=== PATIENT | female | born 1980 | race Two or more races ===

== ENCOUNTER 2024-10-19 14:42 | Emergency (ER) | payer BC, SELFPAY ==
--- OUTSIDE RECORDS SUMMARY | 2024-10-07 10:40 | XMS_ITS | Encounter Summary ---
Author Organization [email or web address] Address [address] [address] Care Team Providers Care Health Services Director Name Role Phone Brodie Hair MD Primary Care Provider [phone] Reason for Referral * Procedure/Equipment (Routine) - New Request Specialty Diagnoses / Procedures Referred By Cher rizo Referred To Contact Diagnoses Encounter for screening for malignant neoplasm of colon Procedures Colonoscopy Screening Brodie Hair MD [address] [place] [address] Phone: tel: fax: Referral ID Status Reason Start Date Expiration Date V isits Requested Visits Authorized [id number] New Request 10/07/2024 10/07/2026 1 1 Reason for Visit * Reason Comments Follow-up, NOS Encounter Details Date Type Department Care Team (Latest Contact Info) Description 10/07/2024 10:40 AM CDT Office Visit [address] [phone] Brodie Hair MD [address] [place] [address] [phone] Adenomatous polyp of colon, unspecified part of colon (Primary Dx); Encounter for screening for malignant neoplasm of colon; Family history of colon cancer; Screening for malignant neoplasm of cervix; Special screening examination for human papillomavirus (HPV); Menstrual cycle problem Social History Tobacco Use Types Packs/Day Years Used Date Smoking Tobacco: Never Smokeless Tobacco: Never Comments:smoked in early ruth ns Alcohol Use Standard Drinks/Week Comments Not Currently 0 (1 standard drink = 0.6 oz pure alcohol) drank ~ 10 years ago - stopped Hunger Vital Sign Answer Date Recorded Within the past 12 months, y ou worried that your food would run out before you got the money to buy more. Never true 01/21/20 24 Within the past 12 months, t he food you bought just didn't last and you didn't have money to get more. Never true 01/21/2024 PRAPARE - Transportation Answer Date Re corded In the past 12 months, has l ack of transportation kept you from medical appointments or from getting medications? No 10/2023 In the past 12 months, has l ack of transportation kept you from meetings, work, or from getting things needed for daily living? No 01/21/2024 Housing Stability Vital Sign Answer Pasha e Recorded In the last 12 months, was t here a time when you were not able to pay the mortgage or rent on time? No 01/21/2024 In the past 12 months, how m any times have you moved where you were living? 0 01/21/2024 At any time in the past 12 m [facility], were you homeless or living in a retirement (including now)? No 01/21/2024 Financial Resource Strain Answer Date R ecorded Is it hard for you to pay fo r the very basics like food, housing, medical care or heating? No 04/28/2022 Food Insecurity Answer Date Recorded Does your food run out before you have the money to buy more? No 04/28/2022 Transportation Needs Answer Date Record ed Does a lack of transportatio n keep you from your medical appointments or from getting your medications? 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 woman comes in today for pap smear only. Her most recent annual exam was on 01/21/2024.Her most recent Pap smear was on 05/23/2021 and showed no abnormalities. Her menstrual cycles are regular but in the past 4 months she has noted that the flow has been little as compared to before. Previous abnormal Pap smears: no Contraception: none Also wanted to discuss colonoscopy. She has family history of colon cancer in her maternal are not and maternal grandfather. Has been getting the colonoscopy every 5 years. The last colonoscopy was in 2019. She has been having colon polyps that are being removed. No change in the bowel movements. Objective: BP 114/80 (BP Location: Right Arm, BP Cuff Size: Regular) Pulse 78 Temp 98.1 ??F (36.7 ??C) (Tympanic) Resp 20 Wt 259 lb 12.8 oz (117.8 kg) BMI 41.93 kg/m?? Pelvic Exam: cervix normal in appearance, external genitalia normal, no adnexal masses or tenderness, no cervical motion tenderness, vagina normal without discharge. Pap smear obtained. Assessment: 1. Adenomatous polyp of colon, unspecified part of colon 2. Encounter for screening for malignant neoplasm of colon 3. Family history of colon cancer 4. Screening for malignant neoplasm of cervix 5. Special screening examination for human papillomavirus (HPV) 6. Menstrual cycle problem Plan: Follow up in 5 years, or as indicated by Pap results. Colonoscopy ordered For decreased menstrual flow with regular cycles hemoglobin and ferritin ordered. The patient also has history of vitamin-D deficiency. Vitamin-D on a regular basis and exercise discussed. The patient is agreeable with the plan. Brodie Hair MD documented in this encounter Plan of Treatment Scheduled Orders Name Type Priority Associated Diagnoses Orde r Schedule Colonoscopy Screening GI Routine Encounter for screening for malignant neoplasm of colon 1 Occurrences starting 10/07/2024 until 10/07/2026 documented as of this encounter Procedures Procedure Name Priority Date/Time Associated Diagnosis Comments HPV WITH 16 18 GENOTYPING, CERVICAL/ENDOCERVI FEROZ Routine 10/07/2024 11:18 AM CDT Special screening examination for human papillomavirus (HPV) documented in this encounter Results * (ABNORMAL) Ferritin (10/07/2024 11:21 AM CDT) Ferritin 255(H) 9 - 204 ng/mL 10/07/2024 7:02 PM CDT [facility] Blood Venipuncture / Unknown 10/07/2024 11:21 AM CDT 10/07/2024 11:21 AM CDT Brodie Hair MD LAB_1 Final Result Performing Organization Address City/[facility]/ZIP Co de Phone Number [facility] CLIA: [id number] [address] [place] [id number] [place] [address] * Hemoglobin, Blood (10/07/2024 11:21 AM CDT) Hemoglobin 13.6 12.0 - 15.5 g/dL 10/07/2024 11:26 AM CDT [facility] Blood Venipuncture / Unknown 10/07/2024 11:21 AM CDT 10/07/2024 11:21 AM CDT Brodie Hair MD LAB_1 Final Result [facility] CLIA: [id number] [address] [place] [phone], [facility] * HPV Genotyping PCR (Cervical/Endocervical ONLY) with Reflex Cytology (Pap) if Indicated (1:18 AM CDT) HPV High Risk Type 16 PCR Not Detected Not detected 10/09/2024 1:[address] [facility] HPV High Risk Type 18 PCR Not Detected Not Detected 10/09/2024 1:[address] [facility] HPV High Risk Other Than 16/18 Not Detected Not detected 10/09/2024 1:[address] [facility] Cervical Broom ENTIRE ENDOCERVIX / Unknown 10/07/2024 11:18 AM CDT 10/07/2024 11:22 AM CDT [facility] - 10/09/2024 1:34 PM CDT The Xiomy HPV test is a qualitative in vitro test for the detection of Human Papillomavirus in [facility] patient specimens. The test utilizes amplification of target DNA by Polymerase Chain Reaction (PCR) and nucleic acid hybridization for the detection of 14 high-risk (HR) HPV types. The assay tests for high risk types (16, 18, 31, 33, 35, 39, 45, 51, 52, 56, 58, 59, 66, and 68). Brodie Hair MD LAB_[address] [facility] CLIA: [id number] [address] [place] [address], [facility] documented in this encounter Visit Diagnoses Diagnosis Adenomatous polyp of colon, unspecified part of colon- Primary Encounter for screening for malignant neoplasm of colon Special screening for malignant neoplasms, colon Family history of colon cancer Family history of malignant neoplasm of gastrointestinal tract Screening for malignant neoplasm of cervix Screening for malignant neoplasm of the cervix Special screening examination for human papillomavirus (HPV) Menstrual cycle problem Irregular menstrual cycle documented in this encounter Care Teams Health Services Director Relationship Specialty Start Date End Date Brodie Hair MD [address] [place] [address] PCP - General 01/26/04 documented as of this encounter
--- OUTSIDE RECORDS SUMMARY | 2024-10-07 11:20 | XMS_ITS | Encounter Summary ---
Author Organization [facility] Address [address] [address] Care Team Providers Care Telecommunication Tower Technician Name Role Phone Brodie Hair MD Primary Care Provider + [phone] Encounter Details Date Type Department Care Team (Late st Contact Info) Description 10/07/2024 11:20 AM CDT Lab Visit [facility] [address] [place] [id number] Menstrual cycle problem Social History Tobacco Use [...] any time in the past 12 m [facility], were you homeless or living in a [facility]p (including now)? No 01/21/2024 Financial Resource Strain [...] on file documented as of this encounter Plan of Treatment Not on file documented as of this encounter Procedures Procedure Name Priority Date/Time Associated Diagnosis Comments HEMOGLOBIN, BLOOD Routine 10/07/2024 11: 21 AM CDT Menstrual cycle problem FERRITIN Routine 10/07/2024 11:21 AM CDT Menstrual cycle problem documented in this encounter Results * (ABNORMAL) Ferritin (10/07/2024 11:21 AM CDT) Ferritin 255(H) 9 - 204 ng/mL 10/07/2024 7:02 PM CDT [facility] Blood Venipuncture / Unknown 10/07/2024 11:21 AM CDT 10/07/2024 11:21 AM CDT us Brodie Hair MD LAB_1 Final Result [facility] CLIA: [id number] [address] [place] [address] * Hemoglobin, Blood (10/07/2024 11:21 AM CDT) Hemoglobin 13.6 12.0 - 15.5 g/dL 10/07/2024 11:26 AM CDT [facility] Blood Venipuncture / Unknown 10/07/2024 11:21 AM CDT 10/07/2024 11:21 AM CDT Brodie Hair MD LAB_1 Final Result [facility] CLIA: [id number] [address] [place] [address] documented in this encounter Visit Diagnoses Diagnosis Menstrual cycle problem Irregular menstrual cycle documented in this encounter Care Teams Telecommunication Tower Technician Relationship Specialty Start Date End Date Brodie Hair MD [address] [place] [address] PCP - General 01/26/04 documented as of this encounter
--- OUTSIDE RECORDS SUMMARY | 2024-10-16 08:00 | XMS_ITS | Encounter Summary ---
Author Organization [facility] Address [address], [place] [address] Care Team Providers Care Global Account Director Name Role Phone Brodie Hair MD Primary Care Provider + [phone] Reason for Visit * Reason Comments EATING DISORDER * Consult/Transfer Care (Routine) - New Request Specialty Diagnoses / Procedures Referred By Cher rizo Referred To Contact Diagnoses Other specified eating disorder Aisha Ge MD [address] [place] [address] Phone: tel: fax: Referral ID Status Reason Start Date Expiration Date V isits Requested Visits Authorized [id number] New Request 05/06/2024 08/05/2025 1 1 Encounter Details Date Type Department Care Team (Late Contact Info) Description 10/16/2024 8:00 AM CDT Office Visit [facility] [address] [place], [place] [address] Rosa Bhardwaj MD [address] [place], [place] [phone] Nurse, [facility] Eating disorder, unspecified type (Primary Dx) Social History Tobacco Use Types Packs/Day Years Used Date Smoking Tobacco: Never Smokeless Tobacco: Never Comments:smoked in early ruth ns Alcohol Use Standard Drinks/Week Comments Not Currently 0 (1 standard drink = 0.6 oz pure alcohol) ank ~ 10 years ago - stopped Hunger [...] any time in the past 12 m [facility], were you homeless or living in a [facility] (including now)? No 01/21/2024 Financial Resource Strain [...] Sign Reading Time Taken Comments Blood Pressure 120/78 10/16/2024 8:09 AM CDT Pulse 79 10/16/2024 8:09 AM CDT Temperature - - Respiratory Rate - - Oxygen Saturation - - Inhaled Oxygen Concentration - - Weight 117.9 kg (260 lb) 10/16/2024 8:07 AM CDT Height 168 cm (5' 6.14) 10/16/2024 8:07 AM CDT Body Mass Index 41.79 10/16/2024 8:07 AM CDT documented in this encounter Functional Status documented as of this encounter Plan of Treatment Not on file documented as of this encounter Results * Phosphorus (10/16/2024 9:46 AM CDT) Phosphorus 3.0 2.3 - 4.7 mg/dL 10/16/2024 10:08 AM CDT [facility] Blood Venipuncture Butterfly / Unknown 10/16/2024 9:46 AM CDT 10/16/2024 9:46 AM CDT us Rosa Bhardwaj MD LAB_1 Final Result Performing Organization Address [facility] Phone Number [facility] CLIA: [id number] * Magnesium (10/16/2024 9:46 AM CDT) Pathologist [facility] Magnesium 1.9 1.6 - 2.6 mg/dL 10/16/2024 10:08 AM CDT [facility] Blood Venipuncture Butterfly / Unknown 10/16/2024 9:46 AM CDT 10/16/2024 9:46 AM CDT us Rosa Bhardwaj MD LAB_1 Final Result Performing Organization Address [facility] de Phone Number [facility] CLIA: [id number] [address] * (ABNORMAL) Comp Metabolic Panel (10/16/2024 9:46 AM CDT) Pathologist [facility] Sodium 138 136 - 145 mmol/L 10/16/2024 10:08 AM CDT [facility] Potassium 4.5 3.5 - 5.1 mmol/L 10/16/2024 10:08 AM CDT [facility] Chloride 105 98 - 109 mmol/L 10/16/2024 10:08 AM [facility] CO2 26 20 - 29 mmol/L 10/16/2024 10:08 AM [facility] Anion Gap 7 6 - 16 mmol/L 10/16/2024 10:08 AM [facility] Calcium 9.1 8.4 - 10.4 mg/dL 10/16/2024 10:08 AM [facility] BUN 9 7 - 26 mg/dL 10/16/2024 10:08 AM [facility] Creatinine 0.74 0.55 - 1.02 mg/dL 10/16/2024 10:08 AM [facility] Alkaline Phosphatase 105 40 - 150 U/L 10/16/2024 10:08 AM [facility] AST (SGOT) 80(H) 16 - 46 U/L 10/16/2024 10:08 AM [facility] ALT (SGPT) 103(H) 0 - 55 U/L 10/16/2024 10:08 AM [facility] Bilirubin, Total 0.3 0.2 - 1.2 mg/dL 10/16/2024 10:08 AM [facility] Protein, Total 7.7 6.4 - 8.3 g/dL 10/16/2024 10:08 AM [facility] Albumin 3.7 3.5 - 5.0 g/dL 10/16/2024 10:08 AM [facility] Glucose 108(H) 70 - 100 mg/dL 10/16/2024 10:08 AM [facility] Comment:The given reference range is for the fasting state. Non-fasting reference range for glucose is 70 - 180 mg/dL. GFR, Estimated >60 >60 mL/min/1.7 3m2 10/16/2024 10:08 AM [facility] Hours Fasting 10.0 8 - 12 Hours 10/16/2024 10:08 AM [facility] Blood Venipuncture Butterfly / Unknown 10/16/2024 9:46 AM CDT 10/16/2024 9:46 AM T us Rosa Bhardwaj MD LAB_1 Final Result [facility] CLIA: [id number] [address] [place] [address], [facility] documented in this encounter Visit Diagnoses Diagnosis Eating disorder, unspecified type- Primary documented in this encounter Care Teams Global Account Director Relationship Specialty Start Date End Date Brodie Hair MD [address] [place] [address] PCP - General 01/26/04 documented as of this encounter
--- OUTSIDE RECORDS SUMMARY | 2024-10-16 09:40 | XMS_ITS | Encounter Summary ---
Author Organization [facility] Address [address], [place] [address] Care Team Providers Care Multimedia Coordinator Name Role Phone Brodie Hair MD Primary Care Provider + [phone] Encounter Details Date Type Department Care Team (Late st Contact Info) Description 10/16/2024 9:40 AM CDT Lab Visit [place] [id number] [place] [address] Eating disorder, unspecified type Social History Tobacco Use Types Packs/Day Years [...] any time in the past 12 m [facility], were you homeless or living in a prison (including now)? No 01/21/2024 Financial Resource Strain [...] on file documented as of this encounter Functional Status documented as of this encounter Plan of Treatment Not on file documented as of this encounter Procedures Procedure Name Priority Date/Time Associated Diagnosis Comments COMPREHENSIVE METABOLIC PANEL STAT 10/16/2024 9:46 AM CDT Eating disorder, unspecified type MAGNESIUM STAT 10/16/2024 9:46 AM CDT Eating disorder, unspecified type PHOSPHORUS STAT 10/16/2024 9:46 AM CDT Eating disorder, unspecified type documented in this encounter Results * Phosphorus (10/16/2024 9:46 AM CDT) Phosphorus 3.0 2.3 - 4.7 mg/dL 10/16/2024 10:08 AM CDT [facility] Blood Venipuncture Butterfly / Unknown 10/16/2024 9:46 AM CDT 10/16/2024 9:46 AM CDT us Rosa Bhardwaj MD LAB_1 Final Result [facility] CLIA: [id number] [address] [place] [address] * Magnesium (10/16/2024 9:46 AM CDT) [facility] Magnesium 1.9 1.6 - 2.6 mg/dL 10/16/2024 10:[address] [facility] Blood Venipuncture Butterfly / Unknown 10/16/2024 9:46 AM CDT 10/16/2024 9:46 AM CDT us Rosa Bhardwaj MD LAB_1 Final Result [facility] CLIA: [id number] [address] [place] [address] * (ABNORMAL) Comp Metabolic Panel (10/16/2024 9:46 AM CDT) [facility] Sodium 138 136 - 145 mmol/L 10/16/2024 10:[address] [facility] Potassium 4.5 3.5 - 5.1 mmol/L 10/16/2024 10:[address] [facility] Chloride 105 98 - 109 mmol/L 10/16/2024 10:[address] [facility] CO2 26 20 - 29 mmol/L 10/16/2024 10:[address] [facility] Anion Gap 7 6 - 16 mmol/L 10/16/2024 10:[address] [facility] Calcium 9.1 8.4 - 10.4 mg/dL 10/16/2024 10:[address] [facility] BUN 9 7 - 26 mg/dL 10/16/2024 10:[address] [facility] Creatinine 0.74 0.55 - 1.02 mg/dL 10/16/2024 10:[address] [facility] Alkaline Phosphatase 105 40 - 150 U/L 10/16/2024 10:[address] [facility] AST (SGOT) 80(H) 16 - 46 U/L 10/16/2024 10:[address] [facility] ALT (SGPT) 103(H) 0 - 55 U/L 10/16/2024 10:[address] [facility] Bilirubin, Total 0.3 0.2 - 1.2 mg/dL 10/16/2024 10:[address] [facility] Protein, Total 7.7 6.4 - 8.3 g/dL 10/16/2024 10:[address] [facility] Albumin 3.7 3.5 - 5.0 g/dL 10/16/2024 10:[address] [facility] Glucose 108(H) 70 - 100 mg/dL 10/16/2024 10:[address] [facility] Comment:The given reference range is for the fasting state. Non-fasting reference range for glucose is 70 - 180 mg/dL. GFR, Estimated >60 >60 mL/min/1.7 3m2 10/16/2024 10:[address] [facility] Hours Fasting 10.0 8 - 12 Hours 10/16/2024 10:[address] [facility] Blood Venipuncture Butterfly / Unknown 10/16/2024 9:46 AM CDT 10/16/2024 9:46 AM T us Rosa Bhardwaj MD LAB_1 Final Result [facility] CLIA: [id number] [address] [place] [address] documented in this encounter Visit Diagnoses Diagnosis Eating disorder, unspecified type documented in this encounter Care Teams Multimedia Coordinator Relationship Specialty Start Date End Date Brodie Hair MD [address] [place] [address] PCP - General 01/26/04 documented as of this encounter
--- OUTSIDE RECORDS SUMMARY | 2024-10-19 14:44 | XMS_ITS | Clinical Summary ---
Author Organization [facility] Address [address] [place] [id number] Care Team Providers Care Inbound Sales Consultant Name Role Phone Pcp, No Primary Care Provider Unavailabl e Allergies No known active allergies Medications #2 TAB take 1 tablet by oral route once daily Active TYLENOL 325 MG TAB daisy as neede for pain Active sennosides-doc usate, 8.6-50 mg, (SENOKOT S) 8.6-50 mg tabletIndicati ons: delivery delivered (HC) Take 1 tablet by mouth 2 times daily. 30 tablet 0 5 Active ibuprofen (ADVIL; MOTRIN) 600 mg tabletIndicati ons: delivery delivered (HC) Take 1 tablet by mouth every 6 hours. Maximum of 3200 mg in 24 hours. 50 tablet 5 Active oxyCODONE-acet aminophen, 5-325 mg, (PERCOCET) 5-325 mg per tabletIndicati ons: delivery delivered (HC) Take 1-2 tablets by mouth every 4 hours if needed for moderate to severe pain. Max acetaminophen dose: 4000mg in 24 hrs. 30 tablet 11/11/2014 2:37 PM CDT 5 Active Breast Pump - PurchaseIndica tions: delivery delivered (HC) For home use. Gestation age at delivery: 39w3d weeks. Reason for need: . 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 Immunizations Immunization Administration Dates Next Due Tdap 02/19/2008 Family History Medical History Relation Name Comments Diabetes Other Strongly ++ mot her's side of family Relation Name Status Comments Other Social History Tobacco Use Types Packs/Day Years Used Date Smoking Tobacco: Never Smokeless Tobacco: Never Alcohol Use Standard Drinks/Week Comments No 0 (1 standard drink = 0.6 oz pur e alcohol) Comments No Sex and Gender Information Value Date Recorded Sex Assigned at Not on file Legal Sex Female 7:30 AM [employer] Gender Identity Not on file Sexual Orientation Not on file Obstetrics History Para Term AB IAB SAB Ectopic Multiple Livin g Live Births 3 3 1 2 0 0 0 0 0 3 3 Date Outcome GA Total Labor Labor/2nd/3rd Weight Sex Type Anes PTL Wandy A1 A5 Name Clin 4 27w 0d M C-Sect ion Livin g 9 36w 0d F Induce d Livin g 2014 Term 39w 3d 3.35 kg (7 lb 6 oz) F C-Sect ion Epidur al Livin g Jo brand Complications:Failure to Pro saúl in Second Stage Last Filed Vital Signs Vital Sign Reading Time Taken Comments Blood Pressure 117/59 11/11/2014 5:00 PM CDT Pulse 70 11/11/2014 5:00 PM CDT Temperature 36.4 C (97.5 F) 11/11/2014 5:00 PM CDT Respiratory Rate 16 11/11/2014 5:00 PM CDT Oxygen Saturation 97% 11/10/2014 1:20 AM CDT Inhaled Oxygen Concentration - - Weight 119.3 kg (263 lb) 11/08/2014 5:05 PM CDT Height 167.6 cm (5' 6) 11/08/2014 5:05 PM CDT Body Mass Index 42.45 11/08/2014 5:05 PM CDT Plan of Treatment Health Maintenance Due Date Last Done Comments Depression screening for age 12+ 1992 HIV for age 15-65 09/11/1995 BMI (ht and wt on same day) for age 18+ 1998 Hepatitis C screening for ag e 18-79 1998 Hepatitis B series for 19+ ( 1 of 3 - 19+ 3-dose series) 09/11/1999 Pap test for age 21-65 2001 HPV series for age 9-45 (1 - 3-dose SCDM series) 09/11/2007 Tetanus booster 02/18/2018 02/19/2008 COVID-19 vaccine series ( season) 2024 Influenza Vaccine (#1) 2024 RSV vaccine for adults or (1 - 1-dose 75+ series) 09/11/2055 Pneumococcal series for age 6-49 Aged Out No longer eligible based on patient's age to complete this topic Additional Health Concerns Infection Onset Date Last Indicated MRSA Comment:Order contact precautions. Nares and urine surveillance cultures needed to clear patient. #1 (nares) 02/18/08 - negative #2 (nares) 08/16/14 - negative #1 (urine) 11/09/14 - negative 11/12/2007 11/12/2007 Insurance MEDICAID Advance Directives * Full Code (Latest Code Status on File) Date Activated Date Inactivated Comments 11/09/2014 2:27 AM 11/11/2014 10:38 PM * Full Code Date Activated Date Inactivated Comments 11/08/2014 5:16 PM 11/09/2014 2:26 AM * Full Code Date Activated Date Inactivated Comments 11/08/2014 4:28 PM 11/08/2014 5:14 PM * Full Code Date Activated Date Inactivated Comments 11/01/2014 9:15 PM 11/01/2014 11:54 PM * Full Code Date Activated Date Inactivated Comments 10/31/2014 5:16 PM 11/01/2014 12:09 AM Care Teams Inbound Sales Consultant Relationship Specialty Start Date End Date Pcp, No . PCP - General 10/27/14
--- OUTSIDE RECORDS SUMMARY | 2024-10-19 14:44 | XMS_ITS | Clinical Summary ---
Author Organization [facility] Address [address], [place] [address] Care Team Providers Care Latent Fingerprint Examiner Name Role Phone Brodie Hair MD Primary Care Provider + [phone] Source Comments You are receiving this document as you are listed as the primary care provider,follow-up provider, or the patient has been referred to you for consultation.This is in compliance with the Medicare andThe [facility] EHR Incentive Program,which states Providers who transition their patient to another setting of careor provider of care or refers their patient to another provider of care shouldprovide summary care record for each transition of care or referral. [facility] Allergies No known active allergies Medications acetaminophen (TYLENOL) 500 MG tablet Take 2 Tablets by mouth every 8 hours as needed for Pain. 100 Tablet 1 0 Active busPIRone (BUSPAR) 10 MG tabletIndicati ons:Anxiety Disorder,Major Depressive Disorder Take 1 Tablet (10 mg) by mouth two times a day. Indications: Anxiety Disorder, Major Depressive Disorder 60 Tablet 3 4 01/21/20 25 Active omeprazole (PRILOSEC) 40 MG capsule Take 1 Capsule (40 mg) by mouth daily. 4 Active FLUoxetine (PROZAC) 40 MG capsule Take 1 Capsule (40 mg) by mouth daily. 90 Capsule 3 5 Active DULoxetine (CYMBALTA) 30 MG capsule Take 1 Capsule (30 mg) by mouth daily. 30 Capsule 5 5 03/18/19 26 Active gabapentin (NEURONTIN) 300 MG capsule Take 1 Capsule (300 mg) by mouth three times a day. 90 Capsule 2 5 Active ibuprofen (MOTRIN) 800 MG tablet Take 1 Tablet by mouth every 8 hours as needed for Pain for up to 30 doses. 40 Tablet 0 10/17/19 25 Discontinu ed(Erroneo us Entry/Dupl icate/Othe r) cyclobenzaprin e (FLEXERIL) 10 MG tabletIndicati ons:Muscle Spasm Take 1 Tablet (10 mg) by mouth three times a day as needed for Muscle Spasms. Indications: Muscle Spasm 30 Tablet 5 10/17/19 25 Discontinu ed(Erroneo us Entry/Dupl icate/Othe r) oxyCODONE (ROXICODONE) 5 MG immediate release tabletIndicati ons:Right sided sciatica (HRC) Take 1 Tablet (5 mg) by mouth every 4 hours as needed for Pain. 10 Tablet 5 10/17/19 25 Discontinu ed(Erroneo us Entry/Dupl icate/Othe r) Active Problems Problem Noted Date Diagnosed Date Family history of colon cancer 10/07/2024 Other specified eating disorder 03/18/2024 Vitamin D deficiency 01/21/2024 EUSEBIO (generalized anxiety disorder) 08/22/2016 Major depressive disorder, recurrent, in full re mission 08/22/2016 Adenomatous polyp of colon 06/24/2013 Overview (05/06/2014): Please repeat your colonoscopy in 5 years (2019) Screening for malignant neoplasm of cervix 06/18 Overview (10/15/2024): 2005 ASCUS Burdette, JASPAL 1 LEEP JASPAL 1-clean margins [id number] NILM 2013 ASCUS, HPV negative 2014 ASCUS, HPV negative 2015 NILM, HPV negative 2018 NILM; HPV negative 37 y.o. 2021 NILM HPV negative 40 y.o. 2024 neg HPV, 44 y.o. PLAN: HPV based screening 09/2027 Morbid obesity with BMI of 40.0-44.9, adult 11/13 Overview (05/13/2014): early 1 hour glucose advised: 158; pt to return for 3 hour gtt Degeneration of lumbar or lumbosacral interverte bral disc 04/19/2007 Resolved Problems Problem Noted Date Diagnosed Date Resolved Date Adhesive capsulitis of right shoulder 06/10/2021 06/10/2021 Right shoulder pain 06/10/2021 06/11/19 22 Sterilization consult 06/26/20182022 Overview (06/26/2018): Added automatically from request for surgery [id number] Severe episode of recurrent major depressive disorder, without psychotic features 04/08/201511/2022 CAREPLAN: [facility] [employer] DISEASE MANAGEMENT 5 11/23/2014 Overview (11/23/2014): Background: Engaged in Disease Management-Healthy : Nichole Odonnell, RN [phone] Gestational diabetes mellitus, class A2 09/21/2014 05/22/2022 Overview (09/27/2014): On Lantus 5u q Encounter for long-term (cur rent) use of insulin 09/21/2014 05/22/2022 History of delivery, currently 08/19/2014 05/22/2022 Overview (08/19/2014): On Weekly progesterone injections H/O: 08/19/2014 05/22/2022 Overview (08/19/2014): 2004 PLTCS with double layer uterine closure. AT 27 WEEKS for transverse lie. I personally reviewed operative note scanned on 03/12/08 2009 AT 36 WEEKS Need Counseling History of gestational diabe karena in prior , currently 08/19/2014 05/22/2022 Overview (08/19/2014): Previous was on Insulin Hx of LEEP (loop electrosurg ical excision procedure) of cervix complicating 08/19/2014 05/22/2022 GDM (gestational diabetes mellitus) 08/19/2014 09/27/2014 Overview (08/19/2014): Two abnormal reading on 08/17/14 Supervision of high-risk 05/06/2014 05/22/2022 Overview (06/03/2014): history of delivery at 28 (C/S) and 36 wks () Per MPP: serial transvag US q 2 wks from 16-24 wks; if cvx length <2.5 cmprior to 24 wks, pt would be candidate for cerclage placement 17-OH progesterone injections weekly from 16-[address] Huffman Resident continuity clinic patient. Please schedule OB visits accordingly. 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 Patient meets criteria to discontinue MRSA contact precautions. No risk factors for prolonged colonization. Resolving Infection. ~Infection Prevention. PMHx MRSA POSITIVE 09/23/07 URINE (H-strain) Previous delivery, antepartum condition or complication 09/25/2007 04/29/2008 Supervision of high-risk 09/25/2007 09/22/2013 Overview (09/25/2007): H/o delivery @ 26wks in 02/2003 in [place], [place]. Sciatica 06/27/2007 06/27/2007 Backache 05/21/2007 05/06/2014 Overview (11/12/2014): Epic Backache 04/25/2007 05/17/2007 Overview (11/12/2014): Epic Low back pain 04/19/2007 05/17/2007 Encounters Date Type Department Care Team Description 10/16/2024 9:40 AM CDT Lab Visit [facility] [address] [place] [address] Eating disorder, unspecified type 10/16/2024 8:00 AM CDT Office Visit [facility] [address] [place] [address] Rosa Bhardwaj MD Nurse, [facility] Eat Dis [facility] Eating disorder, unspecified type (Primary Dx) 10/16/2024 Care Coord Documentation [facility] [address] [place] [address] Faby Salamanca MA 10/08/2024 Results Follow-Up [address] [address] Brodie Hair MD 10/07/2024 11:20 AM CDT Lab Visit [facility] [address] [place] [id number] Menstrual cycle problem 10/07/2024 10:40 AM CDT Office Visit [address] [address] Brodie Hair MD Adenomatous polyp of colon, unspecified part of colon (Primary Dx); Encounter for screening for malignant neoplasm of colon; Family history of colon cancer; Screening for malignant neoplasm of cervix; Special screening examination for human papillomavirus (HPV); Menstrual cycle problem 09/19/[address] [address] Brodie Hair MD QUESTIONS, REFERRAL; Order Questions (Colonoscopy ) 08/25/[address] [address] Brodie Hair MD Depression Registry Call 2 08/14/[address] [address] Brodie Hair MD Depression Registry Call 1 from Last 3 Months Immunizations Immunization Administration Dates Next Due Flu Vac (3+ yrs) 12/05/2012 Flu Vac Preserv Free (3+yrs) 12/11/2007 Flublok (RIV3) 11/15/2023 Flublok (RIV4) 11/17/2022 HepB Adult (Engerix-B, 20+ y rs, 3 dose series) 08/26/2014,06/03/2014,10/01/2008,2007,12/18/2007 Influenza IIV4 (Quadrivalent ) 0.5mL ([id number]) 11/20/2019,12/24/2018,04/05/2018,2015,10/28/2014 Influenza, Unspecified Formulation 11/26/2013 Tdap 10/07/2024,08/26/2014,10/01/2008 Family History Medical History Relation Name Comments Diabetes Mother Heart Attack Mother Hypertension Mother Cancer, Breast Maternal Aunt age unknown Cancer Maternal Grandfather does no t know the type Diabetes, Type II Maternal Grandfather Diabetes, Type II Maternal Grandmother Cataract Negative Family History Glaucoma Negative Family History Macular Degeneration Negative Family History Relation Name Status Comments Father Alive Mother Alive Brother 1 Alive Brother 2 Alive Daughter Alive Maternal Aunt Maternal Grandfather cancer, unknown what kind/type. Maternal Grandmother Alive Paternal Grandfather Paternal Grandmother Alive Sister 1 Alive Sister 2 Alive Son Alive Social History Tobacco Use Types Packs/Day Years Used Date Smoking Tobacco: Never Smokeless Tobacco: Never Tobacco Cessation:Counseling Given: No Comments:smoked in early teens Alcohol Use Standard Drinks/Week Comments Not Currently [...] any time in the past 12 m [facility], were you homeless or living in a half-way (including now)? No 01/21/2024 Financial Resource Strain [...] file Not on file Not on file Last Filed Vital Signs Vital Sign Reading Time Taken Comments Blood Pressure 120/78 10/16/2024 8:09 AM CDT Pulse 79 10/16/2024 8:09 AM CDT Temperature 36.7 C (98.1 F) 10/07/2024 10:14 AM CDT Respiratory Rate 20 10/07/2024 10:14 AM CDT Oxygen Saturation 96% 10/01/2018 1:30 PM CDT Inhaled Oxygen Concentration - - Weight 117.9 kg (260 lb) 10/16/2024 8:07 AM CDT Height 168 cm (5' 6.14) 10/16/2024 8:07 AM CDT Body Mass Index 41.79 10/16/2024 8:07 AM CDT Plan of Treatment Health Maintenance Due Date Last Done Comments HPV Vaccine (1 - 3-dose SCDM series) 09/11/2007 Colonoscopy 10/02/2023 10/01/2018, 06/18/2013 COVID-19 Vaccine ( season) 2024 Influenza Vaccine (#1) 2024 , 11/17/2022, 11/20/2019, Additional history exists Mammogram 01/21/2025 01/22/2024, 06/09/2021 Adult Preventive Visit 01/20/2026 , 04/28/2022, 05/23/2021, Additional history exists Cervical Cancer Screening 10/08/20272024, 05/23/2021, 05/23/2021, Additional history exists Diabetes Screening- (based on age and BMI) 10/17/2027 10/16/2024, 01/17/2024, 03/19/2023, Additional history exists Zoster/Shingles Vaccine (1 of 2) 2030 DTaP/Tdap/Td Vaccine (4 - Tdap) 10/07/2034 10/07/2024, 08/26/2014, 10/01/2008 HIV Screening (Preventive Services) Completed 03/25/2014, 10/30/2007 HepB Vaccine Completed 08/26/2014, 05/14, 10/01/2008, Additional history exists Hep C Screening (Preventive Services) Completed 04/28/2022 HepA Vaccine Aged Out No longer eligi ble based on patient's age to complete this topic Hib Vaccine Aged Out No longer eligi ble based on patient's age to complete this topic IPV (Polio) Vaccine Aged Out No longe r eligible based on patient's age to complete this topic MCV4 Vaccine Aged Out No longer eligi ble based on patient's age to complete this topic Meningococcal B Vaccine Aged Out No l onger eligible based on patient's age to complete this topic Pneumococcal Vaccine Aged Out No long er eligible based on patient's age to complete this topic Procedures Procedure Name Priority Date/Time Associated Diagnosis Comments PHOSPHORUS STAT 10/16/2024 9:46 AM CDT Eating disorder, unspecified type MAGNESIUM STAT 10/16/2024 9:46 AM CDT Eating disorder, unspecified type COMPREHENSIVE METABOLIC PANEL STAT 10/16/2024 9:46 AM CDT Eating disorder, unspecified type FERRITIN Routine 10/07/2024 11:21 AM CDT Menstrual cycle problem HEMOGLOBIN, BLOOD Routine 10/07/2024 11: 21 AM CDT Menstrual cycle problem HPV WITH 16 18 GENOTYPING, CERVICAL/ENDOCERVICAL Routine 10/07/2024 11:18 AM CDT Special screening examination for human papillomavirus (HPV) MM MAMMOGRAM SCREENING BILAT W CAD Routine 01/22/2024 11:00 AM RENAL TECHNICIAN Encounter for screening mammogram for malignant neoplasm of breast HGB A1C Routine 01/17/2024 1:20 PM RENAL TECHNICIAN Abnormal weight gain Screening for diabetes mellitus HEPATITIS C ANTIBODY, WITH REFLEX (ANTI-HCV) Routine 04/28/2022 8:39 AM CDT Need for hepatitis C screening test COLONOSCOPY Routine 10/01/2018 12:34 PM CDT Screen for colon cancer HIV ANTIBODY Routine 03/25/2014 3:44 PM RENAL TECHNICIAN Supervision of other normal , first trimester from Last 3 Months or Most Recently Relevant to Health Maintenance Results * (ABNORMAL) Comp Metabolic Panel (10/16/2024 9:46 AM CDT) Sodium 138 136 - 145 mmol/L 10/16/2024 10:08 AM [facility] Potassium 4.5 3.5 - 5.1 mmol/L 10/16/2024 10:08 AM [facility] Chloride 105 98 - 109 mmol/L 10/16/2024 10:08 AM [facility] CO2 26 20 - 29 mmol/L 10/16/2024 10:08 AM [facility] Anion Gap 7 6 - 16 mmol/L 10/16/2024 10:08 AM [facility] Calcium 9.1 8.4 - 10.4 mg/dL 10/16/2024 10:08 AM [facility] BUN 9 7 - 26 mg/dL 10/16/2024 10:08 AM [facility] Creatinine 0.74 0.55 - 1.02 mg/dL 10/16/2024 10:08 AM [facility] Alkaline Phosphatase 105 40 - 150 U/L 10/16/2024 10:08 AM [facility] AST (SGOT) 80(H) 16 - 46 U/L 10/16/2024 10:08 AM [facility] ALT (SGPT) 103(H) 0 - 55 U/L 10/16/2024 10:08 AM [facility] Bilirubin, Total 0.3 0.2 - 1.2 mg/dL 10/16/2024 10:08 AM [facility] Protein, Total 7.7 6.4 - 8.3 g/dL 10/16/2024 10:08 AM [facility] Albumin 3.7 3.5 - 5.0 g/dL 10/16/2024 10:08 AM [facility] Glucose 108(H) 70 - 100 mg/dL 10/16/2024 10:08 AM [facility] Comment:The given reference range is for the fasting state. Non-fasting reference range for glucose is 70 - 180 mg/dL. GFR, Estimated >60 >60 mL/min/1.7 3m2 10/16/2024 10:08 AM [facility] Hours Fasting 10.0 8 - 12 Hours 10/16/2024 10:08 AM [facility] Blood Venipuncture Butterfly / Unknown 10/16/2024 9:46 AM CDT 10/16/2024 9:46 AM CDT Rosa Bhardwaj MD LAB_1 Final Result [facility] CLIA: [id number] [place] [phone] * Magnesium (10/16/2024 9:46 AM CDT) Magnesium 1.9 1.6 - 2.6 mg/dL 10/16/2024 10:08 AM [facility] Blood Venipuncture Butterfly / Unknown 10/16/2024 9:46 AM CDT 10/16/2024 9:46 AM CDT Rosa Bhardwaj MD LAB_1 Final Result Performing Organization Address City/[facility]/ZIP Co de Phone Number [facility] CLIA: [id number] [address] [place] [address] [phone] * Phosphorus (10/16/2024 9:46 AM CDT) Phosphorus 3.0 2.3 - 4.7 mg/dL 10/16/2024 10:08 AM CDT [facility] Blood Venipuncture Butterfly / Unknown 10/16/2024 9:46 AM CDT 10/16/2024 9:46 AM CDT Rosa Bhardwaj MD LAB_1 Final Result Performing Organization Address [facility] Co de Phone Number [facility] CLIA: [id number] [address] [place] [phone] * Hemoglobin, Blood (10/07/2024 11:21 AM CDT) Pathologist [facility] Hemoglobin 13.6 12.0 - 15.5 g/dL 10/07/2024 11:[address] [facility] Blood Venipuncture / Unknown 10/07/2024 11:21 AM CDT 10/07/2024 11:21 AM CDT Brodie Hair MD LAB_1 Final Result Performing Organization Address City/[facility]/ZIP Co de Phone Number [facility] CLIA: [id number] [address] [place] [phone] * (ABNORMAL) Ferritin (10/07/2024 11:21 AM CDT) Ferritin 255(H) 9 - 204 ng/mL 10/07/2024 7:02 PM CDT [facility] Blood Venipuncture / Unknown 10/07/2024 11:21 AM CDT 10/07/2024 11:21 AM CDT Brodie Hair MD LAB_1 Final Result [facility] CLIA: [id number] [address] [place] [address] * HPV Genotyping PCR (Cervical/Endocervical ONLY) with Reflex Cytology (Pap) if Indicated (1:18 AM CDT) HPV High Risk Type 16 PCR Not Detected Not detected 10/09/2024 1:34 PM CDT [facility] HPV High Risk Type 18 PCR Not Detected Not Detected 10/09/2024 1:34 PM CDT [facility] HPV High Risk Other Than 16/18 Not Detected Not detected 10/09/2024 1:34 PM CDT [facility] Cervical Broom ENTIRE ENDOCERVIX / Unknown 10/07/2024 11:18 AM CDT 10/07/2024 11:22 AM CDT [facility] - 10/09/2024 1:34 PM CDT The [...] 68). Brodie Hair MD LAB_1 Final Result [facility] CLIA: [id number] [address] [place] [address], [facility] * MM Mammogram Screening Bilat W CAD (01/22/2024 11:00 AM RENAL TECHNICIAN) Anatomical Region Laterality Modality Breast Bilateral Mammography Impressions 01/22/2024 4:11 PM RENAL TECHNICIAN : ACR BI-RADS Category 1: Negative RECOMMENDATION: Follow Up Imaging in 12 months - Bilateral The results and recommendations of this examination will be communicated to the patient. Narrative 01/22/2024 4:11 PM RENAL TECHNICIAN MM MAMMOGRAM SCREENING BILAT W CAD performed on 01/22/24 FDA Accredited Facility: [place] [address] Compared to: 06/09/2021 MM Mammogram Screening Bilat W 3D Stu W CAD FINDINGS: Bilateral screening mammogram was performed with the assistance of Computer-Aided Detection . There are scattered areas of fibroglandular density. There is no radiographic evidence of malignancy. Brodie Hair MD RAD CHERYL Final Result * (ABNORMAL) Hgb A1c (01/17/2024 1:20 PM RENAL TECHNICIAN) Pathologist [facility] Hemoglobin A1C 6.1(H) <=5.6 % 01/17/2024 6:15 PM RENAL TECHNICIAN [facility] Estimated Average Glucose (Calc) 128 < 117 mg/dL 01/17/2024 6:15 PM [facility] Comment:Estimated average gl ucose (eAG) converts A1c into glucose units (mg/dL) and estimates average glucose over the past approximately 3 months. The eAG reference interval (<117 mg/dL) corresponds to an A1c of <5.7%. Blood Venipuncture / Unknown 01/17/2024 1:20 PM RENAL TECHNICIAN 01/17/2024 1:20 PM RENAL TECHNICIAN Narrative [facility] - 01/17/2024 6:15 PM RENAL TECHNICIAN For patients not previously diagnosed with diabetes: 5.7-6.4%: Increased risk for diabetes 6.5% and greater: Diagnostic for diabetes For patients diagnosed with diabetes: <8.0%: Goal of therapy for ages 18-75 Clinicians may recommend a higher or lower goal for specific individuals. Aisha Ge MD LAB_1 Shonda rodriguez Result [facility] [address] [place] [address] [phone] * Hepatitis C Antibody, with Reflex (04/28/2022 8:39 AM CDT) Hepatitis C Antibody Negative (Non Reactive) Negative (Non Reactive) 04/28/2022 12:41 PM CDT [facility] Comment:Antibodies to HCV no t detected. Does not exclude the possiblity of exposure to HCV. Blood Venipuncture / Unknown 04/28/2022 8:39 AM CDT 04/28/2022 8:39 AM CDT Samson Burt MD LAB_1 Final Result [facility] [address] * COLONOSCOPY [[id number]] (10/01/2018 12:34 PM CDT) 10/01/2018 12:3 4 PM CDT Narrative GI ([facility]) - 10/01/2018 1:21 PM CDT Instrument Name: [id number] Indications: High risk colon cancer surveillance: Personal history of non-advanced adenoma Providers: Jose J Noe MD, Ulises Chow, HAROON, Feliciano Fry RN, Gaviota Melgar LPN Referring MD: Medicines: Midazolam 3 mg IV, Fentanyl 150 micrograms IV Complications: No immediate complications. Procedure: Pre-Anesthesia Assessment: - Prior to the procedure, a History and Physical was performed, and patient medications and allergies were reviewed. The risks and benefits of the procedure and the sedation options and risks were discussed with the patient. All questions were answered and informed consent was obtained. Patient identification and proposed procedure were verified by the physician and the nurse in the pre-procedure area in the procedure room in the endoscopy suite. Mental Status Examination: alert and oriented. Airway Examination: normal oropharyngeal airway and neck mobility. Respiratory Examination: clear to auscultation. CV Examination: regular rate and rhythm. Prophylactic Antibiotics: The patient does not require prophylactic antibiotics. Prior Anticoagulants: The patient has taken no previous anticoagulant or antiplatelet agents. ASA Grade Assessment: II - A patient with mild systemic disease. After reviewing the risks and benefits, the patient was deemed in satisfactory condition to undergo the procedure. The anesthesia plan was to use moderate sedation / analgesia (conscious sedation). Immediately prior to administration of medications, the patient was re-assessed for adequacy to receive sedatives. The physical status of the patient was re-assessed after the procedure. After I obtained informed consent, the scope was passed under direct vision. Prior to sedation, patient identity and procedure was reverified. Throughout the procedure, the patient's blood pressure, pulse, and oxygen saturations were monitored continuously. The [id number] was introduced through the anus and advanced to the cecum, identified by appendiceal orifice and ileocecal valve. The colonoscopy was performed without difficulty. The patient tolerated the procedure well. The quality of the bowel preparation was good. Findings: The entire examined colon appeared normal on direct and retroflexion views. Moderate Sedation: Moderate (conscious) sedation was administered by the endoscopy nurse and supervised by the endoscopist. The following parameters were monitored: oxygen saturation, heart rate, blood pressure, respiratory rate, EKG, adequacy of pulmonary ventilation, and response to care. Total physician intraservice time was 21 minutes. Impression: - The entire examined colon is normal on direct and retroflexion views. Recommendation: - Return to primary care physician. - Repeat colonoscopy in 5 years for surveillance. Procedure Code(s): --- Professional --- G0105, Colorectal cancer screening; colonoscopy on individual at high risk G0500, Moderate sedation services provided by the same physician or other qualified health infant childcare provider performing a gastrointestinal endoscopic service that sedation supports, requiring the presence of an independent trained observer to assist in the monitoring of the patient's level of consciousness and physiological status; initial 15 minutes of intra-service time; patient age 5 years or older (additional time may be reported with [id number], as appropriate) Diagnosis Code(s): --- Professional --- Z12.11, Encounter for screening for malignant neoplasm of colon Z86.010, Personal history of colonic polyps CPT copyright 2018 [employer]. All rights reserved. The codes documented in this report are preliminary and upon grades 9 12 tutor review may be revised to meet current compliance requirements. Attending Participation: Jose J Noe MD 10/01/2018 1:21:09 PM This report has been signed electronically. Number of Addenda: 0 Note Initiated On: 10/01/2018 12:34 PM Procedure Note Jose J Noe MD - 10/01/2018 Instrument Name: [id number] Indications: High risk colon cancer surveillance: Personal history of non-advanced adenoma Providers: Jose J Noe MD, Ulises Chow RN, Feliciano Fry RN, Gaviota Melgar LPN Referring MD: Medicines: Midazolam 3 mg IV, Fentanyl 150 micrograms IV Complications: No immediate complications. Procedure: Pre-Anesthesia Assessment: - Prior to the procedure, a History and Physical was performed, and patient medications and allergies were reviewed. The risks and benefits of the procedure and the sedation options and risks were discussed with the patient. All questions were answered and informed consent was obtained. Patient identification and proposed procedure were verified by the physician and the nurse in the pre-procedure area in the procedure room in the endoscopy suite. Mental Status Examination: alert and oriented. Airway Examination: normal oropharyngeal airway and neck mobility. Respiratory Examination: clear to auscultation. CV Examination: regular rate and rhythm. Prophylactic Antibiotics: The patient does not require prophylactic antibiotics. Prior Anticoagulants: The patient has taken no previous anticoagulant or antiplatelet agents. ASA Grade Assessment: II - A patient with mild systemic disease. After reviewing the risks and benefits, the patient was deemed in satisfactory condition to undergo the procedure. The anesthesia plan was to use moderate sedation / analgesia (conscious sedation). Immediately prior to administration of medications, the patient was re-assessed for adequacy to receive sedatives. The physical status of the patient was re-assessed after the procedure. After I obtained informed consent, the scope was passed under direct vision. Prior to sedation, patient identity and procedure was reverified. Throughout the procedure, the patient's blood pressure, pulse, and oxygen saturations were monitored continuously. The PCF-H190L was introduced through the anus and advanced to the cecum, identified by appendiceal orifice and ileocecal valve. The colonoscopy was performed without difficulty. The patient tolerated the procedure well. The quality of the bowel preparation was good. Findings: The entire examined colon appeared normal on direct and retroflexion views. Moderate Sedation: Moderate (conscious) sedation was administered by the endoscopy nurse and supervised by the endoscopist. The following parameters were monitored: oxygen saturation, heart rate, blood pressure, respiratory rate, EKG, adequacy of pulmonary ventilation, and response to care. Total physician intraservice time was 21 minutes. Impression: - The entire examined colon is normal on direct and retroflexion views. Recommendation: - Return to primary care physician. - Repeat colonoscopy in 5 years for surveillance. Procedure Code(s): --- Professional --- G0105, Colorectal cancer screening; colonoscopy on individual at high risk G0500, Moderate sedation services provided by the same physician or other qualified health infant childcare provider performing a gastrointestinal endoscopic service that sedation supports, requiring the presence of an independent trained observer to assist in the monitoring of the patient's level of consciousness and physiological status; initial 15 minutes of intra-service time; patient age 5 years or older (additional time may be reported with 28519, as appropriate) Diagnosis Code(s): --- Professional --- Z12.11, Encounter for screening for malignant neoplasm of colon Z86.010, Personal history of colonic polyps CPT copyright 2018 [employer]. All rights reserved. The codes documented in this report are preliminary and upon grades 9 12 tutor review may be revised to meet current compliance requirements. Attending Participation: Jose J Noe MD 10/01/2018 1:21:09 PM This report has been signed electronically. Number of Addenda: 0 Note Initiated On: 10/01/2018 12:34 PM us Jose J Noe MD DIGESTIVE CARE Final Resu lt GI ([facility]OVATION) [place], [place] * HIV ANTIBODY (03/25/2014 3:44 PM RENAL TECHNICIAN) HIV 1/2 Antibody Negative (Non Reactive) NEGNR [facility] Comment: HIV Antibody testing may be falsely negative during the window period. If the patient has had recent exposure (within the past four weeks), consider contacting Infectious Diseases for clarification. 03/25/2014 3:44 PM RENAL TECHNICIAN 03/25/2014 3:46 PM RENAL TECHNICIAN Narrative [facility] - 03/26/2014 9:43 AM RENAL TECHNICIAN Performed at [facility], [address] [place] [id number] us Jovani Rajan MD LAB_1 Final Result Performing Organization Address City[facility] Co de Phone Number [facility] [phone] from Last 3 Months or Most Recently Relevant to Health Maintenance Insurance [facility] [place] [facility] [place] WC Advance Directives * Full Code (Latest Code Status on File) Date Activated Date Inactivated Comments 08/13/2018 6:50 AM 08/13/2018 2:06 PM * Full Code Date Activated Date Inactivated Comments 02/17/2008 12:34 AM 02/17/2008 11:49 AM * Full Code Date Activated Date Inactivated Comments 01/30/2008 11:37 AM 01/30/2008 3:23 PM Care Teams Latent Fingerprint Examiner Relationship Specialty Start Date End Date Brodie Hair MD [address] [place] [address] PCP - General 01/26/04
--- OUTSIDE RECORDS SUMMARY | 2024-10-19 14:44 | XMS_ITS | Encounter Summary ---
Author Organization [facility] Address [address] [place] [address] Care Team Providers Care Psychology Lecturer Name Role Phone Brodie Hair MD Primary Care Provider + [phone] Encounter Details Date Type Department Care Team (Late st Contact Info) Description 07/17/2014 Correspondence External to MACHELLE Young Provider INJECTION REPORT Social History Tobacco Use Types Packs/Day Years Used Date Smoking Tobacco: Never Smokeless Tobacco: Never Comments:smoked in early ruth ns Alcohol Use Standard Drinks/Week Comments No 0 (1 standard drink = 0.6 oz pur e alcohol) drank ~ 10 years ago - stopped Comments Yes Sex and Gender Information Value Date Recorded [...] on file documented as of this encounter Visit Diagnoses Not on filedocumented in this encounter Additional Health Concerns Infection Onset Date Last Indicated Resolved Time MRSA Comment:Please place patient in CONTACT isolation. 05/25/2011 05/25/2011 08/09/2018 12:08 PM CDT documented as of this encounter Care Teams Psychology Lecturer Relationship Specialty Start Date End Date Brodie Hair MD [address] [place] [address] PCP - General 01/26/04 documented as of this encounter
--- OUTSIDE RECORDS SUMMARY | 2024-10-19 14:44 | XMS_ITS | Encounter Summary ---
Author Organization [facility] Address [address], [place] [address] Care Team Providers Care Superintendent Horticulture Name Role Phone Broide Hair MD Primary Care Provider + [phone] Encounter Details Date Type Department Care Team (Latest Contact Info) Description 08/20/2014 Consent for Procedure/Treatme [facility] Obstetrics and Gynecology [address] [place] [phone] Sanfredo, Jenn, EXECUTIVE VICE PRESIDENT BUSINESS DEVELOPMENT, CNM [address] [place] [address] CONSENT FOR STERILIZATION Social History Tobacco Use Types Packs/Day Years [...] documented as of this encounter Care Teams Superintendent Horticulture Relationship Specialty Start Date End Date Brodie Hair MD [facility] [place] [place] [address] PCP - General 01/26/04 documented as of this encounter
--- OUTSIDE RECORDS SUMMARY | 2024-10-19 14:44 | XMS_ITS | Encounter Summary ---
Author Organization [facility] Address [address], [place] [address] Care Team Providers Care Resources Representative Name Role Phone Brodie Hair MD Primary Care Provider + [phone] Encounter Details Date Type Department Care Team (Late st Contact Info) Description 08/31/2014 Correspondence [facility] Obstetrics and Gynecology [address] [place], [place] [phone] Jenn Torres, ANY COMMODITY BUYER, CNM [address] [place], [place] [phone] FMLA Social History Tobacco Use Types Packs/Day Years [...] documented as of this encounter Care Teams Resources Representative Relationship Specialty Start Date End Date Brodie Hair MD [address] [place] [address] PCP - General 01/26/04 documented as of this encounter
--- OUTSIDE RECORDS SUMMARY | 2024-10-19 14:44 | XMS_ITS | Encounter Summary ---
Author Organization [facility] Address [address] [address] Care Team Providers Care Mixer Slagman Name Role Phone Brodie Hair MD Primary Care Provider + [phone] Encounter Details Date Type Department Care Team (Late Contact Info) Description 10/12/2014 Correspondence [facility] [address] [facility] [place], [place] [phone] Sergio Cortes MD [address] [place] [address] STATEMENT OF MEDICAL NECESSITY Social History Tobacco Use Types Packs/Day Years [...] documented as of this encounter Care Teams Mixer Slagman Relationship Specialty Start Date End Date Brodie Hair MD [address] [place] [address] PCP - General 01/26/04 documented as of this encounter
--- OUTSIDE RECORDS SUMMARY | 2024-10-19 14:44 | XMS_ITS | Encounter Summary ---
Author Organization [facility] Address [address] [place] [address] Care Team Providers Care Tar Boiler Name Role Phone Brodie Hair MD Primary Care Provider + [phone] Encounter Details Date Type Department Care Team (Late st Contact Info) Description 08/05/2014 Correspondence External to External, [place] [address] STATEMENT OF MEDICAL NECESSITY Social History Tobacco [...] documented as of this encounter Care Teams Tar Boiler Relationship Specialty Start Date End Date Brodie Hair MD [address] [place] [address] PCP - General 01/26/04 documented as of this encounter
--- OUTSIDE RECORDS SUMMARY | 2024-10-19 14:44 | XMS_ITS | Encounter Summary ---
Author Organization [facility] Address [address] [address] Care Team Providers Care Rehabilitation Tech Name Role Phone Brodie Hair MD Primary Care Provider + [phone] Encounter Details Date Type Department Care Team (Late st Contact Info) Description 06/18/2013 Consent for Procedure/Treatme nt [facility] Department INFORMED CONSENT RECORD Social History Tobacco Use Types Packs/Day Years Used Date Smoking Tobacco: Former Smokeless Tobacco: Never Comments:smoked in early ruth ns Alcohol Use Standard Drinks/Week Comments No 0 (1 standard drink = 0.6 oz pur e alcohol) drank ~ 10 years ago - stopped Comments No Sex and Gender Information Value Date Recorded Sex Assigned at Not on file Legal Sex Female 5:28 AM CDT Gender Identity Not on file Sexual Orientation Not on file 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, PROVIDER - 06/18/2013 12:00 AM CDT documented in this encounter Plan of Treatment Not on file documented as of this encounter Visit Diagnoses Not on filedocumented in this encounter Additional Health Concerns Infection Onset Date Last Indicated Resolved Time MRSA Comment:Please place patient in CONTACT isolation. 05/25/2011 05/25/2011 08/09/2018 12:08 PM CDT documented as of this encounter Care Teams Rehabilitation Tech Relationship Specialty Start Date End Date Brodie Hair MD [address] [place] [address] PCP - General 01/26/04 documented as of this encounter
--- OUTSIDE RECORDS SUMMARY | 2024-10-19 14:44 | XMS_ITS | Encounter Summary ---
Author Organization [facility] Address [address], [place] [address] Care Team Providers Care Monitoring Specialist Name Role Phone Brodie Hair MD Primary Care Provider [phone] Encounter Details Date Type Department Care Team (Latest Contact Info) Description 08/13/2018 Consent for Procedure/Treatme [facility] Obstetrics and Gynecology [address] [place] [phone] Kizzy Joshi MD [address] [place] [address] CONSENT FOR STERILIZATION STATEMENT Social History Tobacco Use Types Packs/Day Years [...] Diagnoses Not on filedocumented in this encounter Care Teams Monitoring Specialist Relationship Specialty Start Date End Date Brodie Hair MD [address] [place], [place] [phone] PCP - General 01/26/04 documented as of this encounter
--- OUTSIDE RECORDS SUMMARY | 2024-10-19 14:44 | XMS_ITS | Encounter Summary ---
Author Organization [facility] Address [address] [address] Care Team Providers Care Extractions Technician Name Role Phone Brodie Hair MD Primary Care Provider [phone] Reason for Referral * Procedure/Equipment (Routine) - New Request Specialty Diagnoses / Procedures Referred By Cher rizo Referred To Contact Diagnoses Screen for colon cancer Procedures Colonoscopy Screening Brodie Hair MD [address] [place] [address] Phone: tel: fax: Referral ID Status Reason Start Date Expiration Date V isits Requested Visits Authorized [id number] New Request 09/21/2024 09/19/2026 1 1 Reason for Visit * Reason Comments QUESTIONS, REFERRAL Order Questions Colonoscopy Encounter Details Date Type Department Care Team (Late st Contact Info) Description 09/19/[address] [address] Brodie Hair MD [address] [place] [address] QUESTIONS, REFERRAL; Order Questions (Colonoscopy ) Social History Tobacco Use Types Packs/Day Years [...] any time in the past 12 m [facility], were you homeless or living in a alf (including now)? No 01/21/2024 Financial Resource Strain [...] on file documented as of this encounter Nursing Notes * Tiffanie Huffman CMA - 09/22/2024 8:17 AM CDT KrowdPad message was sent to pt * Brodie Hair MD - 09/21/2024 8:22 PM CDT Colonoscopy ordered Brodie Hair MD * Tiffanie Huffman CMA - 09/19/2024 4:20 PM CDT Pt had a history of Polyps in colon and concerned about doing f/u. Was supposed to f/u but never did. maybe once a long time ago. Wanting to be cautious to see if any new polyps have grown. Tiffanie Awan CMA 09/19/2024 4:22 PM * Amanda Zhu - 09/19/2024 3:08 PM CDT Other Questions/Concerns/FYI Is this a symptom? No What is your question or concern? Pt just wants to clarify some questions about scheduling a colonoscopy made office visit got 10/02 Have you recently been seen for this? No Preferred communication method: Phone Call. Is it okay to leave a detailed message on your voicemail? Yes online account Is there anything else I can help you with today? no documented in this encounter Plan of Treatment Scheduled Orders Name Type Priority Associated Diagnoses Orde r Schedule Colonoscopy Screening GI Routine Screen for colon cancer 1 Occurrences starting 09/21/2024 until 09/19/2026 documented as of this encounter Visit Diagnoses Diagnosis Screen for colon cancer- Primary Special screening for malignant neoplasms, colon documented in this encounter Care Teams Extractions Technician Relationship Specialty Start Date End Date Brodie Hair MD [address] [place] [address] PCP - General 01/26/04 documented as of this encounter
--- OUTSIDE RECORDS SUMMARY | 2024-10-19 14:44 | XMS_ITS | Encounter Summary ---
Author Organization [facility] Address [address], [place] [address] Care Team Providers Care Setter Induction Heating Equipment Name Role Phone Brodie Hair MD Primary Care Provider [phone] Encounter Details Date Type Department Care Team (Late st Contact Info) Description 04/06/2014 Correspondence External to External, [place] [address] [facility] REFERRAL FORM Social History Tobacco Use Types Packs/Day Years [...] documented as of this encounter Care Teams Setter Induction Heating Equipment Relationship Specialty Start Date End Date Brodie Hair MD [address] [place] [address] PCP - General 01/26/04 documented as of this encounter
--- OUTSIDE RECORDS SUMMARY | 2024-10-19 14:44 | XMS_ITS | Encounter Summary ---
Author Organization [facility] Address [address] [address] Care Team Providers Care News Correspondent Name Role Phone Brodie Hair MD Primary Care Provider + [phone] Encounter Details Date Type Department Care Team (Late st Contact Info) Description 10/16/2024 Care Coord Documentation [facility] [address] [place], [place] [address]Neeraj Ignacio, [address] [place] [address] Faby Salamanca MA Social History Tobacco Use Types Packs/Day Years [...] any time in the past 12 m [facility], were you homeless or living in a longterm (including now)? No 01/21/2024 Financial Resource Strain [...] Functional Status documented as of this encounter Progress Notes * Faby Salamanca MA - 10/16/2024 12:25 PM CDT [facility] Initial Assessment Summary Recommended Level of Care: TBD-further consultation is needed Gave resources for LP and RD Diagnosis: TBD-gave information for OSFED Growth Charts: NA Verbal Disclosure signed: No Outside Care Team: Primary Medical Provider: Brodie Hair MD, Phone Number: [facility] Insurance Info Insurance Benefit Sheet reviewed for non-coverage form needs? Yes Medicare Insurance: No Secondary Insurance: No Medicare Replacement Insurance: No Secondary Insurance: No Flowsheets Completed: Yes Faby Salamanca MA documented in this encounter Plan of Treatment Not on file documented as of this encounter Visit Diagnoses Not on filedocumented in this encounter Care Teams News Correspondent Relationship Specialty Start Date End Date Brodie Hair MD [address] [place] [address] PCP - General 01/26/04 documented as of this encounter
--- OUTSIDE RECORDS SUMMARY | 2024-10-19 14:44 | XMS_ITS | Encounter Summary ---
Author [facility] Address [address] [address] Care Team Providers Care Strapping Machine Tender Name Role Phone Brodie Hair MD Primary Care Provider + [phone] Encounter Details Date Type Department Care Team (Late st Contact Info) Description 10/08/2024 Results Follow-Up [facility] [address] [place] [address] Brodie Hair MD [address] [place] [address] Social History Tobacco Use Types Packs/Day Years [...] any time in the past 12 m [place], were you homeless or living in a assisted (including now)? No 01/21/2024 Financial Resource Strain [...] on filedocumented in this encounter Care Teams Strapping Machine Tender Relationship Specialty Start Date End Date Brodie Hair MD [address] [place] [address] PCP - General 01/26/04 documented as of this encounter
--- OUTSIDE RECORDS SUMMARY | 2024-10-19 14:44 | XMS_ITS | Encounter Summary ---
Author Organization [facility] Address [address] [place] [address] Care Team Providers Care Aeronautics Teacher Name Role Phone Brodie Hair MD Primary Care Provider + [phone] Encounter Details Date Type Department Care Team (Late st Contact Info) Description 08/13/2018 Consent for Procedure/Treatme nt [facility] INFORMED CONSENT RECORD Social History Tobacco [...] on filedocumented in this encounter Care Teams Aeronautics Teacher Relationship Specialty Start Date End Date Brodie Hair MD [address] [place] [address] PCP - General 01/26/04 documented as of this encounter
--- OUTSIDE RECORDS SUMMARY | 2024-10-19 14:44 | XMS_ITS | Encounter Summary ---
Author Organization [facility] Address [address] [address] Care Team Providers Care Color Paste Mixer Name Role Phone Brodie Hair MD Primary Care Provider + [phone] Encounter Details Date Type Department Care Team (Late st Contact Info) Description 07/02/[address] [address] Brodie Hair MD [address] [place] [address] ORDERS Social History Tobacco Use Types Packs/Day Years [...] documented as of this encounter Care Teams Color Paste Mixer Relationship Specialty Start Date End Date Brodie Hair MD [address] [place] [address] PCP - General 01/26/04 documented as of this encounter
--- OUTSIDE RECORDS SUMMARY | 2024-10-19 14:44 | XMS_ITS | Encounter Summary ---
Author Organization [facility] Address [address] [address] Care Team Providers Care Caterpillar Operator Name Role Phone Brodie Hair MD Primary Care Provider + [phone] Encounter Details Date Type Department Care Team (Latest Contact Info) Description 06/24/2018 Consent for Procedure/Treatme [facility] Obstetrics and Gynecology [address] [place] [address] Kizzy Joshi MD [address] [place] [address] CONSENT FOR STERILIZATION Social History [...] documented as of this encounter Care Teams Caterpillar Operator Relationship Specialty Start Date End Date Brodie Hair MD [facility] [place] [address] PCP - General 01/26/04 documented as of this encounter
--- OUTSIDE RECORDS SUMMARY | 2024-10-19 14:44 | XMS_ITS | Encounter Summary ---
Author Organization [facility] Address [address] [place] [address] Care Team Providers Care Heating Systems Installer Name Role Phone Brodie Hair MD Primary Care Provider + [phone] Encounter Details Date Type Department Care Team (Late st Contact Info) Description 06/16/2014 Correspondence External to External, Provider [place] [address] STATEMENT OF MEDICAL NECESSITY Social History Tobacco [...] documented as of this encounter Care Teams Heating Systems Installer Relationship Specialty Start Date End Date Brodie Hair MD [address] [place] [address] PCP - General 01/26/04 documented as of this encounter
--- OUTSIDE RECORDS SUMMARY | 2024-10-19 14:44 | XMS_ITS | Encounter Summary ---
Author Organization [facility] Address [address] [address] Care Team Providers Care Machine Adjuster Leader Name Role Phone Brodie Hair MD Primary Care Provider + [phone] Encounter Details Date Type Department Care Team (Late st Contact Info) Description 08/31/2016 Correspondence [facility] [address] [place] [address] Thee Pizarro, BLADE SHARPENER, [facility] [address] [place] [address] WHODAS QUESTIONNAIRE Social History Tobacco Use Types Packs/Day Years [...] documented as of this encounter Care Teams Machine Adjuster Leader Relationship Specialty Start Date End Date Brodie Hair MD [address] [place] [address] PCP - General 01/26/04 documented as of this encounter
--- OUTSIDE RECORDS SUMMARY | 2024-10-19 14:44 | XMS_ITS | Encounter Summary ---
Author Organization [facility] Address [address] [place] [address] Care Team Providers Care Blanking Press Operator Name Role Phone Brodie Hair MD Primary Care Provider + [phone] Encounter Details Date Type Department Care Team (Late st Contact Info) Description 10/01/2018 Consent for Procedure/Treatme nt [facility] INFORMED [...] on filedocumented in this encounter Care Teams Blanking Press Operator Relationship Specialty Start Date End Date Brodie Hair MD [address] [place] [address] PCP - General 01/26/04 documented as of this encounter
[2024-10-19 14:53] VITALS: BP 149/89; PULSE 96; RESP 20; TEMP 36.8; O2SAT 96; BMI 41.8
--- NOTE | 2024-10-19 15:20 | CRLHL7_ITS ---
For Patients: As a result of the Century Cures Act, medical imaging exams and procedure reports are released immediately into your electronic medical record. You may view this report before your referring provider. If you have questions, please contact your health care provider. Indication: Fall with pain Technique: Right tibia and fibula two views Comparison: None. Findings: No fractures, deformities or bony lesions. No periosteal reaction. No acute major ankle abnormalities demonstrated. Impression: Negative study. Dictated by Bandar Ross MD @ 10/19/2024 3:51:42 PM (Electronically Signed)
--- NOTE | 2024-10-19 15:21 | CRLHL7_ITS ---
For Patients: As a result of the Cures Act, medical imaging exams and procedure reports are released immediately into your electronic medical record. You may view this report before your referring provider. If you have questions, please contact your health care provider. Indication: Fall with pain. Technique: Right shoulder 3 views Comparison: None Findings: Bones: Alignment is normal. No fractures or bone lesions. Small acromial and greater tuberosity bone spurs. Joint spaces: Mild AC joint and glenohumeral joint degenerative changes. Soft tissues: Unremarkable. Impression: No acute abnormalities. Dictated by Bandar Ross MD @ 10/19/2024 3:50:07 PM (Electronically Signed)
--- NOTE | 2024-10-19 15:21 | CRLHL7_ITS ---
For Patients: As a result of the Century Cures Act, medical imaging exams and procedure reports are released immediately into your electronic medical record. You may view this report before your referring provider. If you have questions, please contact your health care provider. Indication: Fall with pain Technique: Right ankle three views Comparison: None. Findings: The ankle mortise and syndesmosis are intact. No fractures or focal bone lesions. No ankle joint effusion. Soft tissue swelling about the ankle, more marked laterally. Impression: Soft tissue swelling about the ankle, more marked laterally. Dictated by Bandar Ross MD @ 10/19/2024 3:52:38 PM (Electronically Signed)
--- NOTE | 2024-10-19 15:22 | ED.GENADULT ---
HPI - General Adult General Chief complaint: Fall/Minor Trauma Stated complaint: fell- R shoulder&foot injury Time Seen by Provider: 10/19/24 14:44 History of Present Illness HPI narrative: Liane is a pleasant 44-year-old female who was celebrating they marriage of her niece, and fell off a porch accidentally injuring her right ankle and her right shoulder. She fell she landed on her shoulder. She denies any loss consciousness any headache neck pain back pain she has had trouble bearing weight on her right ankle but can bear weight. She has swelling over the lateral malleolus of the ankle no open wounds noted. She has tenderness over the top of her shoulder. She has a little bit and tingling in her upper arm as well. Specifically no other wounds or injuries. Specifically no neck pain, back pain, pelvic pain. Related Data Home Medications ?Medication ?Instructions ?Recorded ?Confirmed buspirone 10 mg tablet 10 mg PO BID 01/28/24 01/28/24 cholecalciferol (vitamin D3) 1,250 1,250 mcg PO 01/28/24 01/28/24 mcg (50,000 unit) capsule fluoxetine 40 mg capsule 80 mg PO DAILY 01/28/24 01/28/24 Allergies Allergy/AdvReac Type Severity Reaction Status Date / Time No Known Drug Allergies Allergy Verified 10/19/24 14:53 Review of Systems Status of ROS: Reports: 6 or more systems reviewed and unremarkable except as noted in History and below Exam Narrative: Exam Narrative: Objective: Vital signs unremarkable other than elevated systolic pressure Alert orient x3 very pleasant HEENT unremarkable neck nontender she has tenderness over the right AC joint, no deltoid discomfort or dysesthesia. Right upper extremity shows normal strength of the hand she is very guarded with using her shoulder however. Really will not let me move it much without the discomfort. But most of the palpable tenderness is over the top of the shoulder at the AC joint. Right ankle shows swelling over the lateral malleolus some mild lateral malleolar tenderness tenderness no N/C ability noted of the ankle distal CMS in PET intact. Achilles appears intact Const: Vital Signs, click to edit/add: Vital Signs - 24 hr 10/19/24 14:53 Temperature 98.2 F Pulse Rate [Pulse Oximeter] 96 Respiratory Rate 20 Blood Pressure [Ri ght Upper Arm] 149/89 H Pulse Oximetry 96 Oxygen Delivery Me thod Room Air Course Vital Signs Vital signs: Initial Vital Signs Temperature 98.2 F 10/19/24 14:53 Temperature Source Temporal Artery Scan 10/19/24 14:53 Pulse Rate 96 10/19/24 14:53 Respiratory Rate 10/19/24 14:53 Blood Pressure 149/89 H 10/19/24 14:53 Blood Pressure Mean 109 H 10/19/24 14:53 Pulse Oximetry 96 10/19/24 14:53 Oxygen Delivery Method Room Air 10/19/24 14:53 Vital Signs Temperature 98.2 F 10/19/24 14:53 Pulse Rate 96 10/19/24 14:53 Respiratory Rate 20 10/19/24 14:53 Blood Pressure 149/89 H 10/19/24 14:53 Pulse Oximetry 96 10/19/24 14:53 Oxygen Delivery Method Room Air 10/19/24 14:53 Temperature 98.2 F 10/19/24 14:53 Pulse Rate 96 10/19/24 14:53 Respiratory Rate 10/19/24 14:53 Blood Pressure 149/89 H 10/19/24 14:53 Pulse Oximetry 96 10/19/24 14:53 Oxygen Delivery Method Room Air 10/19/24 14:53 Medications Administered Medications: Discontinued Medications Generic Name Dose Route Start Last Admin Trade Name Yony PRN Reason Stop Dose Admin Ketorolac Tromethamine 10 mg 10/19/24 15:28 10/19/24 16:00 Ketorolac 10 Mg Tablet PO 10/19/24 15:29 10 mg ONCE ONE Administration Medical Decision Making [facility] Narrative Medical decision making narrative: 44-year-old female with a fall off a low porch with right shoulder AC separation likely and right ankle sprain. Would recommend x-rays of the shoulder and the ankle he will also get tib fib. She does have some higher ankle tenderness and I would like to make sure does have a proximal fibular fracture. Addendum 3:45 p.m.: By my read independently the x-ray of the right shoulder appears negative for fracture. She was given an arm sling. She will be recommended to do ice 5-10 minutes 5 times a day for the next several days will get a prescription for Toradol from in see med. Her right ankle by my review and tib-fib show no obvious fracture as well by a my read. Patient because it is both on the right side and she can not really use crutches because of her right arm and shoulder affected would use a Cam boot. Recommend observation, elevation, Toradol as described. Recommend follow-up with primary care in the next 2-3 days for reassessment certainly sooner change concerns worsening may need some physical therapy down the road. Discharge Plan Discharge Clinical Impression: Fall, shoulder, Right ankle sprain Patient Disposition: Home w/ Parent or Adult Condition: Stable Additional Instructions: Arm sling, weight-bearing as tolerated, limit weight-bearing, ice to the ankle and shoulder 5-10 minutes 5 times a day, ibuprofen 800 t.i.d. over the next 5 days. Follow-up with primary care in 2-3 days for reassessment, light activity in the interim. Would recommend off work in that period of time. Will write a note to that effect for 5 days off work. Knees Toradol for pain 1 3 to 4 times a day, use sparingly. Activity Level: Light activity Activity Detail: Off work x5 days Discharge Diet: Regular Prescriptions: No Action cholecalciferol (vitamin D3) 1,250 mcg (50,000 unit) capsule 1,250 mcg PO buspirone 10 mg tablet 10 mg PO BID fluoxetine 40 mg capsule 80 mg PO DAILY Follow Up/Referrals: Provider,Not a Local [Primary Care Provider, Family Practice] Stand Alone Forms: [employer] Info Instructions
[2024-10-19] MEDS: KETOROLAC 10 MG TABLET PO (16:00)
== END 2024-10-19 16:14 | disposition home or self-care (01) ==
LOC: ED 15:44
PROVIDERS: Emergency Provider Family Medicine
DX: S93.401A Sprain of unspecified ligament of right ankle, initial encounter (principal); S43.101A Unspecified dislocation of right acromioclavicular joint, initial encounter; W17.89XA Other fall from one level to another, initial encounter
CPT/HCPCS: 73030; 73590; 73610; 99284; A9270